=== PATIENT | male | born 1985 ===

== ENCOUNTER 2016-09-09 16:44 | Emergency (ER) | payer OTHER ==
[2016-09-09 16:54] VITALS: BP 112/75; PULSE 88; RESP 18; TEMP 99.6; O2SAT 98
--- NOTE | 2016-09-09 17:32 | C.PDOC ---
History Of Present Illness 31 yr old male presents to the ER for evaluation of general body aches, non productive cough and subjective fever for the past 2 days. Patient reports he vomited 2-3 times today which prompted his visit to the ED. Patient also requesting refill for albuterol. Patient denies chest pain, SOB, nausea, abdominal pain, diarrhea, headache, weakness or numbness. Time Seen by Provider: 09/09/16 16:55 Chief Complaint (Nursing): Flu-like Symptoms History Per: Patient History/Exam Limitations: no limitations Onset/Duration Of Symptoms: Days (2) Past Medical History Reviewed: Historical Data, Nursing Documentation, Vital Signs Vital Signs: Last Vital Signs Temp 99.6 F 09/09/16 16:50 Pulse 88 09/09/16 16:50 Resp 18 09/09/16 16:50 BP 112/75 09/09/16 16:50 Pulse Ox 98 09/09/16 23:08 - Medical History PMH: Asthma - [facility] Procedures SUTURE OF LIP LACERATION (07/13/14) Family History: States: No Known Family Hx - Social History Hx Tobacco Use: Yes Hx Alcohol Use: Yes Hx Substance Use: Yes - Immunization History Hx Tetanus Toxoid Vaccination: Yes Hx Influenza Vaccination: No Hx Pneumococcal Vaccination: No Review Of Systems Except As Marked, All Systems Reviewed And Found Negative. Constitutional: Positive for: Fever (Subjective), Other (Generalized body aches) Cardiovascular: Negative for: Chest Pain Respiratory: Positive for: Cough (Non productive). Negative for: Shortness of Breath Gastrointestinal: Positive for: Vomiting. Negative for: Nausea, Abdominal Pain , Diarrhea Neurological: Negative for: Weakness, Numbness, Headache Physical Exam - Physical Exam Appears: Well, Non-toxic, No Acute Distress Skin: Warm, Dry, No Rash Head: Atraumatic, Normacephalic Eye(s): bilateral: Normal Inspection, PERRL, EOMI Oral Mucosa: Moist Throat: Normal, No Erythema, No Exudate Neck: Normal, Normal ROM, Supple Chest: Symmetrical, No Tenderness Cardiovascular: Rhythm Regular, No Murmur Respiratory: Normal Breath Sounds, No Rales, No Rhonchi, No Stridor, No Wheezing , Other (No retractions) Gastrointestinal/Abdominal: Normal Exam, Soft, No Tenderness, No Guarding, No Rebound Extremity: Normal ROM, No Swelling Neurological/Psych: Oriented x3, Normal Speech, Normal Motor, Normal Sensation ED Course And Treatment O2 Sat by Pulse Oximetry: 98 Medical Decision Making Medical Decision Making: PLAN: * Tylenol PO * Zofran PO Disposition Counseled Patient/Family Regarding: Diagnosis, Need For Followup, Rx Given - Disposition Referrals: [facility] [Outside] [facility] [Outside] Disposition: HOME/ ROUTINE Disposition Time: 17:29 Condition: STABLE Additional Instructions: FOLLOW UP WITH PMD IN 1-2 DAYS FOR RE-EVALUATION. AVOID MILK/DAIRY PRODUCTS. IF SYMPTOMS GET WORSE OR ANY NEW CONCERNING SYMPTOMS DEVELOP RETURN TO ED. 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 - Scribe Statement The provider has reviewed the documentation as recorded by the Scribe Jillian Christine All medical record entries made by the Denizibe were at my direction and personally dictated by me. I have reviewed the chart and agree that the record accurately reflects my personal performance of the history, physical exam, medical decision making, and the department course for this patient. I have also personally directed, reviewed, and agree with the discharge instructions and disposition.
== END 2016-09-09 17:46 | disposition home or self-care (01) ==
LOC: C.ER 16:44
DX: B34.9 Viral infection, unspecified (principal)

== ENCOUNTER 2016-12-13 19:10 | Emergency (ER) | payer OTHER ==
[2016-12-13 19:44] VITALS: BP 118/79; PULSE 79; RESP 20; TEMP 98
[2016-12-13] MEDS ORDERED: Tmp-Smz 800 mg-160 mg DS Tab PO STA (20:30)
[2016-12-13] MEDS ORDERED: Tmp-Smz 800 mg-160 mg DS Tab ONE (20:36)
[2016-12-13] MEDS ORDERED: Bacitracin 500 Units/gm Oint Foilpak UD TOP ONE (20:40)
[2016-12-13] MEDS ORDERED: Bacitracin 500 Units/gm Oint Foilpak UD ONE (20:42)
--- NOTE | 2016-12-13 20:45 | C.PDOC ---
History Of Present Illness 31 yr old male presents to the ER stating while at work 3-4 days ago a wooden pallet hit him on the lateral left leg and sustained a laceration. Patient states he was initially seen by the workers comp and was told it was just a bruise. However, patient states the symptoms have worsened prompting the visit. Denies fever, back pain, weakness or numbness. Time Seen by Provider: 12/13/16 19:25 Chief Complaint (Nursing): Lower Extremity Problem/Injury History Per: Patient History/Exam Limitations: no limitations Onset/Duration Of Symptoms: Days (3-4 days ago) Past Medical History Reviewed: Historical Data, Nursing Documentation, Vital Signs Vital Signs: Last Vital Signs Temp 98 F 12/13/16 19:28 Pulse 79 12/13/16 19:28 Resp 20 12/13/16 19:28 BP 118/79 12/13/16 19:28 Pulse Ox 75 L 12/13/16 20:54 - Medical History PMH: Asthma - [facility] Procedures SUTURE OF LIP LACERATION (07/13/14) Family History: States: No Known Family Hx - Social History Hx Tobacco Use: Yes Hx Alcohol Use: Yes Hx Substance Use: Yes - Immunization History Hx Tetanus Toxoid Vaccination: Yes Hx Influenza Vaccination: No Hx Pneumococcal Vaccination: No Review Of Systems Except As Marked, All Systems Reviewed And Found Negative. Constitutional: Negative for: Fever Musculoskeletal: Positive for: Leg Pain (Lateral left leg pain with a laceration ). Negative for: Back Pain Neurological: Negative for: Weakness, Numbness Physical Exam - Physical Exam Appears: Non-toxic, No Acute Distress Skin: Warm, Dry, No Rash, Other ((+) Left Lateral Malleolus - 2cm healing laceration with mild erythema, tenderness and swelling ) Head: Atraumatic, Normacephalic Eye(s): bilateral: Normal Inspection Oral Mucosa: Moist Chest: Symmetrical, No Tenderness Cardiovascular: Rhythm Regular, No Friction Rub, No Murmur Respiratory: Normal Breath Sounds, No Rales, No Rhonchi, No Stridor, No Wheezing Extremity: Tenderness (Left Lateral Malleolus - Mild tenderess. ), No Calf Tenderness, Capillary Refill (<2), Swelling (Left Lateral Malleolus - Mild swelling ), Other ((+) Tenderness and swelling to the left lateral tibia and fibula ) Pulses: Left Dorsalis Pedis: Normal, Right Dorsalis Pedis: Normal Neurological/Psych: Oriented x3, Normal Speech, Normal Motor Gait: Steady ED Course And Treatment O2 Sat by Pulse Oximetry: 98 (RA ) Pulse Ox Interpretation: Normal - Other Rad X-Ray - Left Foot X-Ray: Interpreted by Me, Viewed By Me Interpretation: Negetive for fractures. X-Ray - Tibia Fibula X-Ray: Interpreted by Me, Viewed By Me Interpretation: Negetive for fractures. Medical Decision Making Medical Decision Making: PLAN: * X-Ray - Left Foot, Tibia Fibula * Keflex PO * Motrin PO * Bactrim PO * Bacitracin TOP xrays are negative for fracture or foreign bodies. The patient is ambulatory with steady gait, and the wound was cleansed with sterile saline and betadine. Bacitracin was applied. Disposition - Disposition Referrals: [facility] [Outside] Disposition: HOME/ ROUTINE Disposition Time: 20:30 Condition: GOOD Additional Instructions: Clean the wound twice a day. Ice and elevate the leg. return if worsened. 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 - Scribe Statement The provider has reviewed the documentation as recorded by the Scribe Jillian Christine All medical record entries made by the Denizibariadne were at my direction and personally dictated by me. I have reviewed the chart and agree that the record accurately reflects my personal performance of the history, physical exam, medical decision making, and the department course for this patient. I have also personally directed, reviewed, and agree with the discharge instructions and disposition.
[2016-12-13 23:08] VITALS: O2SAT 98
--- NOTE | 2016-12-14 08:51 | RAD ---
Left tibia and fibula three views History: Leg injury. Comparison: None available. Findings: No evidence for acute displaced fracture or dislocation. Suggestion of a bony exostosis emanating from the medial cortex of the distal femur at the level of the metadiaphysis. Correlation with femur x-ray may be helpful. Impression: Negative acute. If pain persists, consider MRI. Suggestion of a bony exostosis emanating from the medial cortex of the distal femur at the level of the metadiaphysis. Correlation with femur x-ray may be helpful.
--- NOTE | 2016-12-14 08:53 | RAD ---
Left foot three views History: Foot injury. Laceration to the lateral ankle. Comparison: None available. Findings: Mild hallux valgus deformity. No evidence acute displaced fracture or dislocation. Punctate radiopaque density seen distal to the 4th distal phalanx which may represent artifact and/or small soft tissue calcification. Impression: Mild hallux valgus deformity. No evidence for acute displaced fracture or dislocation. Punctate radiopaque density seen distal to the 4th distal phalanx which may represent artifact and/or small soft tissue calcification. If pain persists, consider MRI.
== END 2016-12-13 21:03 | disposition home or self-care (01) ==
LOC: C.ER 19:10
DX: L03.116 Cellulitis of left lower limb (principal); S90.32XD Contusion of left foot, subsequent encounter; W22.8XXD Striking against or struck by other objects, subsequent encounter